=== PATIENT | female | born 1950 | race Asian ===

== ENCOUNTER 2016-09-19 08:49 | Emergency (ER) | payer MEDICAID, MEDICARE ==
[~2016-09-19] VITALS: Ht 154.9 cm; Wt 59.1 kg
[~2016-09-19 08:49] MED LIST: DOXY-232 PO; FURO-128 PO; FURO-129 PO; HYDR-4003 PO; POTA20TA16 PO; TRAM50TA2 PO
[2016-09-19 09:05] VITALS: BP 171/101; PULSE 99; RESP 15; O2SAT 99
--- NOTE | 2016-09-19 09:19 | ED.REPORT ---
HPI-Extremity Problem Lower Date of Service Sep 19, 2016 ED Provider: Jonathan Hathaway Pt is a 66 female w/ a hx of diabetes, arthritis, ischemic ulcer of both feet, presenting to the ED due to severe bilateral great toe pain onset 1 week ago. Her pain is aching and throbbing. She c/o associated difficulty sleeping, swelling and erythema. She denies fever, chills. She was scheduled for an artery leg and aortic duplex ultrasound today by her PCP but missed her appointment. Nursing Notes Stated Complaint: DIABETIC/BILATERAL FOOT PAIN Chief Complaint: General Complaint Nursing Notes Reviewed: Yes Allergies: Coded Allergies: amoxicillin (Unverified Allergy, Intermediate, RASH, 07/25/16) Penicillins (Unverified Allergy, Unknown, 08/18/16) Scheduled Doxycycline Monohyd (Doxycycline Monohyd) 100 Mg Tablet 100 MG PO BID Furosemide (Lasix) 40 Mg Tablet 40 MG PO BID Furosemide (Lasix) 20 Mg Tablet 20 MG PO DAILY Furosemide (Lasix) 20 Mg Tablet 20 MG PO DAILY Potassium Chloride (Potassium Chloride) 20 Meq Tab.er.prt 20 MEQ PO DAILY TAKE WITH FOOD Prednisone (PredniSONE) 20 Mg Tablet 60 MG PO DAILY Scheduled PRN Hydrocodone-Acetaminophen 5-325 mg (Hydrocodone-Acetaminophen 5-325 mg) 1 Each Tablet 1 TABLET PO Q4H PRN PRN For Pain Tramadol (Tramadol) 50 Mg Tablet 100 MG PO Q6H PRN PRN For Pain General Time Seen by MD: 09:13 Chief Complaint Other (Great toe pain bilat) Hx Obtained From: Patient Arrived By: Walk-in Onset Occurred: 1 week ago Symptom Duration: Since onset Location: : Toe left 1: Toe right 1 Quality: Painful Severity: Current: Severe Severity: Maximum: Severe Recent Healthcare: Previous diagnosis Similar Sx Previous: Yes Past Medical History Past Medical History diabetes anxiety depression arthritis Past Surgical History none reported Smoking History Light Tobacco Smoker Social History Patient denies drug use, however, her PCP states that she had admitted to ingesting black tar heroin regularly. Ambulatory Status Independent Review of Systems Constitutional: Denies: Chills, Fever Musculoskeletal: Reports: Extremity pain, Extremity swelling Skin: Reports Rash Complete sys rev & neg: except as marked. Physical Exam Initial Vital Signs Vital Signs (First) Date Time Temp Pulse Resp B/P Pulse Ox O2 Delivery O2 Flow Rate FiO2 09/19/16 09:05 36.3 99 15 171/101 99 Room Air Initial VS: Reviewed, Vital signs abnormal Head / Eyes: Atraumatic, Normocephalic, PERRL ENT: Mucous membranes moist, Conjunctiva normal, No scleral icterus Neck: Full range of motion Respiratory: Breath sounds normal, Clear to auscultation, No respiratory distress Cardiovascular: Regular rate & rhythm, Heart sounds normal, Intact distal pulses Abdomen / GI: Soft Skin: Warm, Dry Neurologic: Alert, Oriented, Nonfocal Psychiatric: Mood/affect normal, Behavior normal, Normal thought content Lower Extremity / Pelvis / MS: Atraumatic, Full range of motion, No deformity Ankle / Foot: Atraumatic, No deformity 2+ DP pulses. Bilateral 1+ lower extremity edema. Mottling of the toes with a dusky looking right great toe. Scattered small non-infected ulcerations of the left first and second toes General/Constitutional: Awake, Alert, Cooperative, Not toxic appearing Distress / Hydration: Positive: Distress mild Interpretation & Diagnostics Interpretation & Diagnostics: Extremity arterial study: IMPRESSION: 1. Monophasic waveforms are seen throughout the bilateral lower extremity vasculature. No focal stenosis is seen bilaterally. by: Alexander Hitchcock M.D. on 09/19/2016 at 12:10 Approved by: Alexander Hitchcock M.D. on 09/19/2016 at 12:10 Lab Results Interpretation Result Diagram: 09/19/16 1133 09/19/16 1133 Test 09/19/16 11:33 White Blood Count 10.5th/mm3 (3.8-10.1) Red Blood Count 3.16mil/mm3 (3.90-5.20) Hemoglobin 7.7g/dL (12.0-15.6) Hematocrit 24.7% (35.0-46.0) Mean Corpuscular Volume 78.2fL (81-100) Mean Corpuscular Hemoglobin 24.4pg (27.0-35.0) Mean Corpuscular Hemoglobin Concent 31.2% (32.0-37.0) Red Cell Distribution Width 18.9% (12.3-15.4) Platelet Count 315bil/L (150-400) Neutrophils (%) (Auto) 54.5% (40-74) Lymphocytes (%) (Auto) 28.5% (14-46) Monocytes (%) (Auto) 8.6% (4-12) Eosinophils (%) (Auto) 7.5% (0-5) Basophils (%) (Auto) 0.6% (0-3) Erythrocyte Sedimentation Rate 86mm/hr (0-40) Sodium Level 140mEq/L (134-144) Potassium Level 3.6mEq/L (3.5-5.2) Chloride Level 101mEq/L (97-108) Carbon Dioxide Level 28mmol/L (18-29) Blood Urea Nitrogen 17mg/dL (8-27) Creatinine 0.60mg/dL (0.57-1.00) Estimat Glomerular Filtration Rate 144mL/min (>59) Glucose Level 111mg/dL (60-99) Calcium Level 8.6mg/dL (8.5-10.1) Hold Oliva Top Tube Received (Received) Re-Eval/Medical Decision Med Decision/Clinical Course Patient has had chronic toe and lower extremity pain for a period of months, prior records are reviewed the patient has had an elevated sedimentation rate for an ongoing period of time associated with an elevated JUNIE. This raises the possibility of a vasculitis. Patient will be started on prednisone. The case is discussed with the primary care doctor who agrees with the discharge plan. Of note, the patient uses heroin though not by IV injection or smoking, evidently she ingests this orally. It seems less likely these are septic emboli and her symptoms have been present for several months, it seems reasonable to send the patient home, 3 sets of blood cultures were obtained in the unlikely event that this may represent subacute bacterial endocarditis. The patient is started on prednisone 60 mg daily, the primary care agrees to follow-up with the patient's exam and laboratory findings. Return precautions given. Re-Evaluation/Progress : Time of Eval: 13:03 Re-Evaluation/Progress Note: Pt rechecked. Informed pt of plan for treatment. Pt understands and agrees with plan for treatment. F/U and RTER warnings given. All questions addressed. Consultation : Referral / Consult Name: Thierry Villanueva DO Note: chronic foot pain, active heroin user non IVDA, ok with starting steroids, known anemia, no indication of GI bleed. agrees with blood culture on off chance of septic emboli. agrees to follow up patient Counseled Regarding: Diagnosis, Need for follow-up, When/why to return to ED Discharge & Departure Impression: Primary Impression: Toe pain, bilateral Disposition: Home Discharge Condition All VS Reviewed: Yes Condition: Stable Additional Instructions: You have moderate blood flow to your feet, there is no evidence of infection on your toes. After discussion with your doctor, we will start you on prednisone. Follow-up with your doctor regarding pain management and further evaluation of your toes. Blood cultures were obtained on the unlikely chance that this is due to an infection. Return to ER as needed if worse. Referrals: Thierry Villanueva DO (PCP) Mario Attestation Portions of this note were transcribed by Shaggy Barber. I, Dr. Hathaway personally performed the history, physical exam and medical decision-making; I reviewed and confirmed the accuracy of the information in the transcribed note. Signed by Mario Friedman, 09/19/16 [id number] copies to: Thierry Villanueva Timothy S DO Sep 19, 2016 09:19 SHAGGY BARBER Sep 19, 2016 09:31
[2016-09-19] MEDS ORDERED: HYDROcodone-APAP 5-325 mg Tablet PO ONE (09:30)
[2016-09-19] MEDS ORDERED: fentaNYL-PF 50 mCg/mL 2 mL Inj IVPUSH ONE (11:20)
[2016-09-19 11:44] LABS: BASOPHILS % (AUTO) 0.6 % (0-3); EOSINOPHILS % (AUTO) 7.5 % (0-5); MONOCYTES % (AUTO) 8.6 % (4-12); Mean Corpuscular Hemoglobin 24.4 pg (27.0-35.0); Mean Corpuscular Volume 78.2 fL (81-100); NEUTROPHILS % (AUTO) 54.5 % (40-74); Platelet Count 315 bil/L (150-400)
[2016-09-19] MEDS ORDERED: predniSONE 20 mg Tablet PO ONE (12:10)
--- NOTE | 2016-09-19 12:12 | DRSVH ---
PROCEDURE: US ARTERY LEG DUPLEX BILATERAL/ILIAC CAVA INDICATIONS: ischemic toes TECHNIQUE: Color and pulse Doppler interrogation was performed of both lower extremity arterial systems, with im age documentation. COMPARISON: None. FINDINGS: Right lower extremity: Monophasic waveforms are seen throughout. Vascular Ultrasound Procedure Report Findings(Artery of Lower Extremity)(Right) Common Femoral Artery(Distal) Velocity: 147.80 cm/s Profunda Femoris Artery(Proximal) Velocity: 128.50 cm/s Superficial Femoral Artery(Proximal) Velocity: 114.40 cm/s Superficial Femoral Artery(Mid-longitudinal) Velocity: 109.30 cm/s Superficial Femoral Artery(Distal) Velocity: 145.20 cm/s Popliteal Artery(Mid-longitudinal) Velocity: 129.80 cm/s, 154.20 cm/s Posterior Tibial Artery(Distal) Velocity: 85.10 cm/s Dorsalis Pedis Artery(Distal) Velocity: 10 7 cm/s Greyscale findings: Negative Left lower extremity: Monophasic waveforms are seen throughout Vascular Ultrasound Procedure Report Findings(Artery of Lower Extremity)(Left) Common Femoral Artery(Distal) Velocity: 134.20 cm/s Profunda Femoris Artery(Proximal) Velocity: 103 cm/s Superficial Femoral Artery(Proximal) Velocity: 128.60 cm/s Superficial Femoral Artery(Mid-longitudinal) Velocity: 178.80 cm/s Superficial Femoral Artery(Distal) Velocity: 163 cm/s Popliteal Artery(Mid-longitudinal) Velocity: 177.70 cm/s Posterior Tibial Artery(Distal) Velocity: 110.70 cm/s Dorsalis Pedis Artery(Distal) Velocity: 118 cm/s Greyscale findings: Negative IMPRESSION: 1. Monophasic waveforms are seen throughout the bilateral lower extremity vasculature. No focal steno sis is seen bilaterally. by: Alexander Hitchcock M.D. on 09/19/2016 at 12:10 Approved by: Alexander Hitchcock M.D. on 09/19/2016 at 12:10
[2016-09-19] MEDS ORDERED: PRE20 PO (13:01)
[2016-09-19 13:10] VITALS: BP 152/96; PULSE 106; RESP 18; O2SAT 97
[2016-09-19 14:13] LABS: ERYTHROCYTE SEDIMENTATION RATE 86 mm/hr (0-40)
== END 2016-09-19 13:12 | disposition home or self-care (01) ==
LOC: SED 08:49
DX: M79.674 Pain in right toe(s) (principal); M79.675 Pain in left toe(s); E11.9 Type 2 diabetes mellitus without complications; F17.200 Nicotine dependence, unspecified, uncomplicated; Z88.0 Allergy status to penicillin; Z88.1 Allergy status to other antibiotic agents